=== PATIENT | female | born 1980 | race Caucasian/White ===

== ENCOUNTER 2019-10-08 05:09 | Emergency (ER) | payer OTHER ==
--- NOTE | 2019-10-08 05:30 | EDM.PDOC ---
<Heladio Jackman - Last Filed: 10/08/19 07:10> ED HPI GENERAL MEDICAL PROBLEM - General Chief Complaint: General Stated Complaint: SWOLLEN THROAT, DIFFICULTY BREATHING Time Seen by Provider: 10/08/19 05:20 - History of Present Illness INITIAL COMMENTS - FREE TEXT/NARRATIVE: 39-year-old female presents the emergency room with shortness of breath breathing difficulty sore throat. This started a couple days ago mostly with a sore throat and she has some swelling in her neck. She has been chilled at times unsure if she is had any fevers she has a mild dry nonproductive cough she denies any chest pain. She has no nausea but did early on in the illness. Patient denies any other complaints at this time patient is pretty sure she is not as she has had a tubal ligation. Throat Pain Score (Numeric/FACES): 7 - Related Data Allergies Allergy/AdvReac Type Severity Reaction Status Date / Time No Known Allergies Allergy Verified 10/08/19 05:28 Home Meds: Home Meds Amoxicillin 500 mg PO TID #30 tab 10/08/19 [Rx] ED ROS GENERAL - Review of Systems Review Of Systems: See Below Constitutional: Reports: Chills, Malaise, Weakness. Denies: No Symptoms HEENT: Reports: Throat Pain (She has noticed some swelling here also) Respiratory: Reports: Cough. Denies: No Symptoms, Shortness of Breath Cardiovascular: Reports: No Symptoms Endocrine: Reports: No Symptoms GI/Abdominal: Reports: No Symptoms : Reports: No Symptoms Musculoskeletal: Reports: No Symptoms ( ) ED EXAM, GENERAL - Physical Exam Exam: See Below Exam Limited By: No Limitations General Appearance: Alert, No Apparent Distress Eye Exam: Bilateral Eye: Normal Inspection Ears: Normal External Exam, Normal Canal, Hearing Grossly Normal, Normal TMs Nose: Normal Inspection, Normal Mucosa, No Blood Throat/Mouth: Normal Lips, Normal Teeth, Normal Voice, No Airway Compromise, Other (Tonsils are massively enlarged with a large amount of exudate noted on them posterior pharynx is minimally erythematous) Head: Atraumatic, Normocephalic Neck: Normal Inspection, Supple, Non-Tender, Full Range of Motion, Lymphadenopathy (L), Lymphadenopathy (R), Other (Palpation of the adenopathy is quite tender) Respiratory/Chest: No Respiratory Distress, Lungs Clear, Normal Breath Sounds Cardiovascular: Regular Rate, Rhythm, No Edema, No Murmur GI/Abdominal: Normal Bowel Sounds, Soft, No Organomegaly, No Distention, No Abnormal Bruit, No Mass, Other (She has a minimal amount of epigastric discomfort) Back Exam: Normal Inspection. No: CVA Tenderness (L), CVA Tenderness (R) Course - Vital Signs Last Recorded V/S: Last Vital Signs Temp 36.6 C 10/08/19 05:23 Pulse 98 10/08/19 05:23 Resp 20 10/08/19 05:23 BP 129/84 10/08/19 05:23 Pulse Ox 96 10/08/19 05:23 - Orders/Labs/Meds Labs: Laboratory Tests 10/08/19 10/08/19 10/08/19 Range/Units 05:55 05:55 05:55 WBC 14.73 H (3.98-10.04) K/mm3 RBC 4.51 (3.98-5.22) M/mm3 Hgb 13.0 (11.2-15.7) gm/dl Hct 39.8 (34.1-44.9) % MCV 88.2 (79.4-94.8) fl MCH 28.8 (25.6-32.2) pg MCHC 32.7 (32.2-35.5) g/dl RDW Std Deviation 47.5 H (36.4-46.3) fL Plt Count 279 (182-369) K/mm3 MPV 9.8 (9.4-12.3) fl Neutrophils % (Manual) 75 H (40-60) % Band Neutrophils % 0 (0-10) % Lymphocytes % (Manual) 17 L (20-40) % Atypical Lymphs % 0 % Monocytes % (Manual) 8 (2-10) % Eosinophils % (Manual) 0 L (0.7-5.8) % Basophils % (Manual) 0 L (0.1-1.2) Platelet Estimate Adequate RBC Morph Comment Normal Sodium 140 (136-145) mEq/L Potassium 3.4 L (3.5-5.1) mEq/L Chloride 103 (98-107) mEq/L Carbon Dioxide 23 (21-32) mEq/L Anion Gap 17.4 H (5-15) BUN 10 (7-18) mg/dL Creatinine 0.9 (0.55-1.02) mg/dL Est Cr Clr Drug Dosing 95.66 mL/min Estimated GFR (MDRD) > 60 (>60) mL/min BUN/Creatinine Ratio 11.1 L (14-18) Glucose 124 H (74-106) mg/dL Calcium 8.4 L (8.5-10.1) mg/dL Ferritin 116 (8-252) ng/ml Total Bilirubin 0.7 (0.2-1.0) mg/dL AST 38 H (15-37) U/L ALT 48 (14-59) U/L Alkaline Phosphatase 65 (46-116) U/L C-Reactive Protein 25.6 H* (<1.0) mg/dL Total Protein 7.7 (6.4-8.2) g/dl Albumin 3.5 (3.4-5.0) g/dl Globulin 4.2 gm/dL Albumin/Globulin Ratio 0.8 L (1-2) Monoscreen (NEGATIVE) 10/08/19 Range/Units 05:55 WBC (3.98-10.04) K/mm3 RBC (3.98-5.22) M/mm3 Hgb (11.2-15.7) gm/dl Hct (34.1-44.9) % MCV (79.4-94.8) fl MCH (25.6-32.2) pg MCHC (32.2-35.5) g/dl RDW Std Deviation (36.4-46.3) fL Plt Count (182-369) K/mm3 MPV (9.4-12.3) fl Neutrophils % (Manual) (40-60) % Band Neutrophils % (0-10) % Lymphocytes % (Manual) (20-40) % Atypical Lymphs % % Monocytes % (Manual) (2-10) % Eosinophils % (Manual) (0.7-5.8) % Basophils % (Manual) (0.1-1.2) Platelet Estimate RBC Morph Comment Sodium (136-145) mEq/L Potassium (3.5-5.1) mEq/L Chloride (98-107) mEq/L Carbon Dioxide (21-32) mEq/L Anion Gap (5-15) BUN (7-18) mg/dL Creatinine (0.55-1.02) mg/dL Est Cr Clr Drug Dosing mL/min Estimated GFR (MDRD) (>60) mL/min BUN/Creatinine Ratio (14-18) Glucose (74-106) mg/dL Calcium (8.5-10.1) mg/dL Ferritin (8-252) ng/ml Total Bilirubin (0.2-1.0) mg/dL AST (15-37) U/L ALT (14-59) U/L Alkaline Phosphatase (46-116) U/L C-Reactive Protein (<1.0) mg/dL Total Protein (6.4-8.2) g/dl Albumin (3.4-5.0) g/dl Globulin gm/dL Albumin/Globulin Ratio (1-2) Monoscreen Negative (NEGATIVE) Meds: Medications Discontinued Medications Generic Name Dose Route Start Last Admin Trade Name Freq PRN Reason Stop Dose Admin Amoxicillin 500 mg 10/08/19 07:09 10/08/19 07:47 Amoxil PO 10/08/19 07:10 500 mg ONETIME ONE Administration - Re-Assessments/Exams Free Text/Narrative Re-Assessment/Exam: 10/08/19 07:10 Rapid strep positive patient will be started on amoxicillin. Chest x-ray is unrevealing C-reactive protein is elevated ferritin is normal Departure - Departure Time of Disposition: 07:12 Disposition: Home, Self-Care 01 Clinical Impression: Strep pharyngitis - Discharge Information Prescriptions: Amoxicillin 500 mg PO TID #30 tab Referrals: PCP,None [Primary Care Provider] - Forms: ED Department Discharge Additional Instructions: Return to the emergency room with any questions problems or worsening symptoms. Take the amoxicillin as directed and take until all gone. Follow-up in the clinic if needed [phone] Sepsis Event Note - Focused Exam Vital Signs: Vital Signs Temp Pulse Resp BP Pulse Ox 10/08/19 05:23 36.6 C 98 20 129/84 96 Date Exam was Performed: 10/08/19 Time Exam was Performed: 07:10 <Romeo Muhammad - Last Filed: 10/08/19 11:28> Sepsis Event Note - Focused Exam Date Exam was Performed: 10/08/19 Time Exam was Performed: 08:58
[2019-10-08] MEDS ORDERED: Amoxicillin 500 MG Cap PO ONE (07:09)
--- NOTE | 2019-10-08 08:03 | CR ---
Chest: Frontal view of the chest was obtained. Comparison: No prior chest imaging is available. Heart size and mediastinum are normal. Azygos lobe is noted within the right upper chest. Lungs are clear with no acute parenchymal change. Bony structures are grossly intact. Impression: 1. Nothing acute is seen on frontal chest x-ray. Diagnostic code #1 This report was dictated in MDT
== END 2019-10-08 09:23 | disposition home or self-care (01) ==
LOC: JD.ED 05:09
DX: J02.0 Streptococcal pharyngitis (principal)
CPT/HCPCS: 36415; 71045; 80053; 82728; 85007; 85027; 86140; 86308; 87430; 99283; A9270

== ENCOUNTER 2020-04-16 02:33 | Emergency (ER) | payer BC, OTHER ==
[2020-04-16] MEDS ORDERED: FLU VACC QS2020-21(6MOS UP)/PF 60 MCG/0.5 ML SYRINGE IM ONE (03:15)
--- NOTE | 2020-04-16 03:28 | EDM.PDOC ---
ED HPI GENERAL MEDICAL PROBLEM - General Chief Complaint: Respiratory Problem Stated Complaint: SOB/NAUSEATED Time Seen by Provider: 04/16/20 03:00 Source of Information: Reports: Patient History Limitations: Reports: No Limitations - History of Present Illness INITIAL COMMENTS - FREE TEXT/NARRATIVE: Mrs. Ontiveros is a very pleasant 40-year-old woman who now presents to the ED a fter she developed dyspnea on exertion and even some dyspnea at rest, along with a fever and chills yesterday morning, 04/15/2020. She was nervous about her breathing, therefore acquired a finger pulse oximeter. She states that her oxygen saturation was 91% if upright, but down to 84% if she was supine. She then developed a dull discomfort felt under her left breast around noon yesterday. She then developed nausea with a single episode of emesis around midnight tonight. No recent cough or wheezing. No palpitations. No recent lower extremity edema or swelling. No prior similar symptoms. The patient states that she took 1000 g of acetaminophen around 11:00 yesterday morning, but no medications since. Here in the ED, the patient is found to be tachycardic at 135 bpm with mild tachypnea of 22 rpm. She is afebrile, saturating 93% on room air. Prior to yesterday morning, the patient denies having a recent fever, chills, sore throat, ear pain, nasal or sinus congestion, cough, dyspnea, chest pain, palpitations, nausea, vomiting, constipation, diarrhea, abdominal pain, urinary symptoms, recent weight gain or weight loss, recent bloody bowel movements or black bowel movements, recent joint aches, headaches, or rashes. The patient does not have a PCP. She did not receive an influenza vaccine this season, but agreed to receive one here today. Chest Pain Score (Numeric/FACES): 3 - Related Data Allergies Allergy/AdvReac Type Severity Reaction Status Date / Time No Known Allergies Allergy Verified 04/16/20 02:46 Past Medical History Neurological History: Reports: Other (See Below) (Shingles neuropathy right abdomen) - Infectious Disease History Infectious Disease History: Reports: Mononucleosis - Past Surgical History HEENT Surgical History: Reports: Oral Surgery (dental extractions) GI Surgical History: Reports: Cholecystectomy (2002) Female Surgical History: Reports: Tubal Ligation (2018) Social & Family History - Tobacco Use Tobacco Use Status *Q: Never Tobacco User Second Hand Smoke Exposure: No - Caffeine Use Caffeine Use: Reports: None - Alcohol Use Alcohol Use History: Yes Alcohol Use Frequency: Socially - Recreational Drug Use Recreational Drug Use: Yes Drug Use in Last 12 Months: No Recreational Drug Type: Reports: 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 ED EXAM, GENERAL - Physical Exam Exam: See Below Exam Limited By: No Limitations General Appearance: Alert, WD/WN, No Apparent Distress Eye Exam: Bilateral Eye: EOMI, Normal Inspection Ears: Normal External Exam, Hearing Grossly Normal Nose: Normal Inspection Throat/Mouth: Normal Inspection, Normal Lips, Normal Voice, No Airway Compromise Head: Atraumatic, Normocephalic Neck: Normal Inspection, Full Range of Motion Respiratory/Chest: No Respiratory Distress, Lungs Clear, Normal Breath Sounds, No Accessory Muscle Use. No: Decreased Breath Sounds, Crackles, Rhonchi, Wheezing, Stridor, Prolonged Expiration Cardiovascular: Normal Peripheral Pulses, No Edema, No Gallop, No JVD, No Murmur, No Rub, Tachycardia (regular) Peripheral Pulses: 3+: Radial (L), Radial (R) GI/Abdominal: Normal Bowel Sounds, Soft, Non-Tender, No Organomegaly, No Distention, No Abnormal Bruit, No Mass Back Exam: Normal Inspection, Full Range of Motion, NT Extremities: Normal Inspection, Normal Range of Motion, No Pedal Edema, Normal Capillary Refill Neurological: Alert, Oriented, Normal Cognition, No Motor/Sensory Deficits Psychiatric: Anxious Skin Exam: Warm, Dry, Intact, Normal Color, No Rash #1 Interpretation EKG Date: 04/16/20 Time: 02:54 Rhythm: Other (Sinus tachycardia) Rate (Beats/Min): 126 [place]: Other (Extreme axis) P-Wave: Enlarged (PAT) QRS: Normal ST-T: Normal QT: Normal Comparison: NA - No Prior EKG Course - Vital Signs Last Recorded V/S: Last Vital Signs Temp 37.6 C 04/16/20 02:43 Pulse 135 H 04/16/20 02:43 Resp 22 H 04/16/20 02:43 BP 121/75 04/16/20 02:43 Pulse Ox 93 L 04/16/20 02:43 - Orders/Labs/Meds Orders: Active Orders 24 hr Category Date Time Status EKG Documentation Completion [RC] STAT Care 04/16/20 03:14 Active Influenza Vaccine Charge [RC] .DISCHARGE Care 04/16/20 02:49 Active Ang Chest [CT] Stat Exams 04/16/20 03:34 Taken Chest 2V [CR] Stat Exams 04/16/20 03:14 Taken CULTURE BLOOD [BC] Stat Lab 04/16/20 03:30 Received CULTURE BLOOD [BC] Stat Lab 04/16/20 03:40 Received Sodium Chloride 0.9% [Normal Saline] 1,000 ml Med 04/16/20 03:45 Active IV ASDIRECTED Sodium Chloride 0.9% [Normal Saline] 100 ml Med 04/16/20 05:00 Active IV ASDIRECTED Sodium Chloride 0.9% [Saline Flush] Med 04/16/20 05:00 Active 10 ml FLUSH BOLUS Blood Culture x2 Reflex Set [OM.PC] Stat Oth 04/16/20 03:14 Ordered Isolation [COMM] Routine Oth 04/16/20 03:20 Ordered Medication Orders Sodium Chloride (Normal Saline) 1,000 mls @ 75 mls/hr IV ASDIRECTED SARA Last Admin: 04/16/20 04:40 Dose: 75 mls/hr Documented by: BARBIE Sodium Chloride (Normal Saline) 100 mls @ 60 mls/hr IV ASDIRECTED SARA Last Admin: 04/16/20 04:50 Dose: 60 mls/hr Documented by: [email or web address] Sodium Chloride (Saline Flush) 10 ml FLUSH BOLUS SARA Last Admin: 04/16/20 04:50 Dose: 10 ml Documented by: [email or web address] Labs: Laboratory Tests 04/16/20 04/16/20 04/16/20 Range/Units 03:05 03:05 03:05 WBC 5.21 (3.98-10.04) K/mm3 RBC 4.95 (3.98-5.22) M/mm3 Hgb 13.8 (11.2-15.7) gm/dl Hct 42.1 (34.1-44.9) % MCV 85.1 D (79.4-94.8) fl MCH 27.9 (25.6-32.2) pg MCHC 32.8 (32.2-35.5) g/dl RDW Std Deviation 44.0 (36.4-46.3) fL Plt Count 216 (182-369) K/mm3 MPV 9.7 (9.4-12.3) fl Neutrophils % (Manual) 61 H (40-60) % Band Neutrophils % 24 H (0-10) % Lymphocytes % (Manual) 12 L (20-40) % Atypical Lymphs % 0 % Monocytes % (Manual) 3 (2-10) % Eosinophils % (Manual) 0 L (0.7-5.8) % Basophils % (Manual) 0 L (0.1-1.2) Platelet Estimate Adequate Plt Morphology Comment Normal RBC Morph Comment Normal D-Dimer, Quantitative 2.18 H (0.19-0.50) mg/L Sodium 137 (136-145) mEq/L Potassium 3.4 L (3.5-5.1) mEq/L Chloride 102 (98-107) mEq/L Carbon Dioxide 23 (21-32) mEq/L Anion Gap 15.4 H (5-15) BUN 9 (7-18) mg/dL Creatinine 0.9 (0.55-1.02) mg/dL Est Cr Clr Drug Dosing 94.73 mL/min Estimated GFR (MDRD) > 60 (>60) mL/min BUN/Creatinine Ratio 10.0 L (14-18) Glucose 131 H (74-106) mg/dL Lactic Acid (0.4-2.0) mmol/L Calcium 8.5 (8.5-10.1) mg/dL Magnesium 1.8 (1.8-2.4) mg/dl Total Bilirubin 0.7 (0.2-1.0) mg/dL AST 42 H (15-37) U/L ALT 54 (14-59) U/L Alkaline Phosphatase 65 (46-116) U/L Troponin I < 0.017 (0.00-0.056) ng/mL NT-Pro-B Natriuret Pep (0-125) pg/mL Total Protein 7.5 (6.4-8.2) g/dl Albumin 3.5 (3.4-5.0) g/dl Globulin 4.0 gm/dL Albumin/Globulin Ratio 0.9 L (1-2) SARS-CoV-2 RNA (RIANNA) (NEGATIVE) 04/16/20 04/16/20 04/16/20 Range/Units 03:05 03:05 03:25 WBC (3.98-10.04) K/mm3 RBC (3.98-5.22) M/mm3 Hgb (11.2-15.7) gm/dl Hct (34.1-44.9) % MCV (79.4-94.8) fl MCH (25.6-32.2) pg MCHC (32.2-35.5) g/dl RDW Std Deviation (36.4-46.3) fL Plt Count (182-369) K/mm3 MPV (9.4-12.3) fl Neutrophils % (Manual) (40-60) % Band Neutrophils % (0-10) % Lymphocytes % (Manual) (20-40) % Atypical Lymphs % % Monocytes % (Manual) (2-10) % Eosinophils % (Manual) (0.7-5.8) % Basophils % (Manual) (0.1-1.2) Platelet Estimate Plt Morphology Comment RBC Morph Comment D-Dimer, Quantitative (0.19-0.50) mg/L Sodium (136-145) mEq/L Potassium (3.5-5.1) mEq/L Chloride (98-107) mEq/L Carbon Dioxide (21-32) mEq/L Anion Gap (5-15) BUN (7-18) mg/dL Creatinine (0.55-1.02) mg/dL Est Cr Clr Drug Dosing mL/min Estimated GFR (MDRD) (>60) mL/min BUN/Creatinine Ratio (14-18) Glucose (74-106) mg/dL Lactic Acid 0.9 (0.4-2.0) mmol/L Calcium (8.5-10.1) mg/dL Magnesium (1.8-2.4) mg/dl Total Bilirubin (0.2-1.0) mg/dL AST (15-37) U/L ALT (14-59) U/L Alkaline Phosphatase (46-116) U/L Troponin I (0.00-0.056) ng/mL NT-Pro-B Natriuret Pep 15 (0-125) pg/mL Total Protein (6.4-8.2) g/dl Albumin (3.4-5.0) g/dl Globulin gm/dL Albumin/Globulin Ratio (1-2) SARS-CoV-2 RNA (RIANNA) Positive H (NEGATIVE) Meds: Medications Generic Name Dose Route Start Last Admin Trade Name Freq PRN Reason Stop Dose Admin Sodium Chloride 1,000 mls @ 75 mls/hr 04/16/20 03:45 04/16/20 04:40 Normal Saline IV 75 mls/hr ASDIRECTED SARA Administration Sodium Chloride 100 mls @ 60 mls/hr 04/16/20 05:00 04/16/20 04:50 Normal Saline IV 60 mls/hr ASDIRECTED SARA Administration Sodium Chloride 10 ml 04/16/20 05:00 04/16/20 04:50 Saline Flush FLUSH 10 ml BOLUS SARA Administration Discontinued Medications Generic Name Dose Route Start Last Admin Trade Name Freq PRN Reason Stop Dose Admin Influenza Virus Vaccine 1 each 04/16/20 02:49 Pharmacy To Dose - Influenza Vaccine IM 04/16/20 02:50 ONETIME ONE Influenza Virus Vaccine 60 mcg 04/16/20 03:15 Fluzone Quad [id number] Syringe IM 04/16/20 03:16 .ONCE ONE Iopamidol 100 ml 04/16/20 04:48 04/16/20 04:50 [id number]-370 (76%) IVPUSH 04/16/20 04:49 100 ml ONETIME ONE Administration - Re-Assessments/Exams Free Text/Narrative Re-Assessment/Exam: 04/16/20 03:17 As above, the patient developed dyspnea on exertion and even dyspnea at rest, along with a fever, chills, and decreased oxygen saturation yesterday morning, discomfort under her left breast around noon yesterday, then nausea with a single episode of emesis around midnight tonight. She denies having a cough, however, she did cough when I asked her to take deep breaths in order to auscultate her lungs. She is tachycardic, and an ECG obtained at triage demonstrates sinus tachycardia with an extreme axis. While no fever was recorded here in the ED, she feels somewhat febrile to the touch. Her lungs are entirely clear to auscultation bilaterally, which is concerning for COVID-19, although a pulmonary embolus could also explain all of her symptoms. I have ordered a work-up that includes blood work, 2 sets of blood cultures, a chest x- ray, and swabs for both influenza and the SARS-CoV-2 virus. 04/16/20 03:35 The patient's D-dimer has returned elevated at 2.18, therefore I have ordered a CT angiogram of the chest to evaluate for a PE, along with judicious IV fluid. 04/16/20 03:44 The patient's CBC is unremarkable. Her CMP is remarkable for a potassium slightly depressed at 3.4, and anion gap slightly elevated at 15.4, but with a bicarbonate normal at 23, blood glucose slightly elevated at 131, and an AST slightly elevated at 42 with an ALT normal at 54, and the remainder of her CMP being unremarkable. Her magnesium level is within normal limits at 1.8. Her lactic acid level is within normal limits at 0.9. Her troponin is undetectably low. Her BNP is within normal limits at 15. 04/16/20 04:15 The patient's swab for the SARS-CoV-2 virus has returned positive. 04/16/20 04:20 The patient's swab for influenza has returned negative. 04/16/20 05:21 2-view chest radiograph is read by [facility] as "Subtle bilateral lower lobe parenchymal opacities consistent with pneumonia. See concurrent CT chest report ." 04/16/20 05:25 CT angiogram of the chest is read by [facility] as: No CT findings to suggest pulmonary emboli, thoracic aortic dissection or aneurysm. Extensive bilateral lung ground-glass opacities. Commonly reported imaging features of COVID-19 pneumonia are present. Other processes such as influenza pneumonia and organizing pneumonia, as can be seen with drug toxicity and connective tissue disease, can cause a similar imaging pattern. (Reference: Bon) 04/16/20 05:38 Test results discussed with the patient. As above, the patient has COVID-19, which explains her symptoms. She also has mild hyperglycemia due to either prediabetes or actual diabetes. I recommended that the patient purchase a finger pulse oximeter, and that she return to the ED if her oxygen saturation gets down to 90% or below. I explained that medical treatment does not kick in unless her oxygen saturation is low enough to require supplemental oxygen. I advised that she try to avoid antipyretics, but that if she really felt she needed one, to take Tylenol as opposed to ibuprofen. I advised her to strictly quarantine until she tests negative for the virus twice. Once she is feeling better, I would like her to follow-up with a PCP to be checked for prediabetes versus diabetes. The patient will be given an influenza vaccine prior to discharge. Departure - Departure Time of Disposition: 05:40 Disposition: Home, Self-Care 01 Condition: Good Clinical Impression: COVID-19, Hyperglycemia - Discharge Information *PRESCRIPTION DRUG MONITORING PROGRAM REVIEWED*: Not Applicable *COPY OF PRESCRIPTION DRUG MONITORING REPORT IN PATIENT AMAURY: Not Applicable Referrals: PCP,None [Primary Care Provider] - Forms: ED Department Discharge Additional Instructions: You were seen in the emergency room after developing shortness of breath, even at rest, along with a fever, chills, a decreased oxygen saturation, and discomfort under your left breast, along with nausea and one episode of vomiting. Work-up in the ER included blood work, 2 sets of blood cultures, a chest x-ray, a CT angiogram of your chest, and swabs for both influenza and the SARS-CoV-2 virus. Your blood work found your blood sugar to be mildly elevated at 131. This indicates that you either have a condition known as prediabetes, or actual diabetes. Once you are feeling better, we would like you to follow-up with a primary care for further evaluation. Your swab to test for the SARS-CoV-2 virus returned positive, and both your chest x-ray and CT scan demonstrated that you have infiltrates in both of your lungs consistent with COVID-19 pneumonia. The remainder of your work-up was unremarkable. It is imperative that you strictly quarantine until you tested negative for the virus twice. We recommend that you continue to monitor your oxygen saturation. If it drops down to 90% or below, you need to return to the ER for reevaluation. In general, we recommend that you not take any [id number] Tylenol or ibuprofen for a fever, because fever is an important part of your immune system trying to fight the virus, however, if you are particularly uncomfortable and need to take something, we recommend that you take Tylenol as opposed to ibuprofen. You were given an influenza vaccine during your ER visit. Sepsis Event Note (ED) - Evaluation Sepsis Screening Result: No Definite Risk - Focused Exam Vital Signs: Vital Signs Temp Pulse Resp BP Pulse Ox 04/16/20 02:43 37.6 C 135 H 22 H 121/75 93 L - My Orders Last 24 Hours: My Active Orders 04/16/20 02:49 Influenza Vaccine Charge [RC] .DISCHARGE 04/16/20 03:14 EKG Documentation Completion [RC] STAT Chest 2V [CR] Stat Blood Culture x2 Reflex Set [OM.PC] Stat 04/16/20 03:20 Isolation [COMM] Routine 04/16/20 03:30 CULTURE BLOOD [BC] Stat 04/16/20 03:34 Ang Chest [CT] Stat 04/16/20 03:40 CULTURE BLOOD [BC] Stat 04/16/20 03:45 Sodium Chloride 0.9% [Normal Saline] 1,000 ml IV ASDIRECTED 04/16/20 05:00 Sodium Chloride 0.9% [Normal Saline] 100 ml IV ASDIRECTED Sodium Chloride 0.9% [Saline Flush] 10 ml FLUSH BOLUS - Assessment/Plan Last 24 Hours: My Active Orders 04/16/20 02:49 Influenza Vaccine Charge [RC] .DISCHARGE 04/16/20 03:14 EKG Documentation Completion [RC] STAT Chest 2V [CR] Stat Blood Culture x2 Reflex Set [OM.PC] Stat 04/16/20 03:20 Isolation [COMM] Routine 04/16/20 03:30 CULTURE BLOOD [BC] Stat 04/16/20 03:34 Ang Chest [CT] Stat 04/16/20 03:40 CULTURE BLOOD [BC] Stat 04/16/20 03:45 Sodium Chloride 0.9% [Normal Saline] 1,000 ml IV ASDIRECTED 04/16/20 05:00 Sodium Chloride 0.9% [Normal Saline] 100 ml IV ASDIRECTED Sodium Chloride 0.9% [Saline Flush] 10 ml FLUSH BOLUS
[2020-04-16] MEDS ORDERED: Sodium Chloride 0.9% 1,000 ML IV SCH (03:45)
[2020-04-16] MEDS ORDERED: Iopamidol 755 Mg/ML 100 ML Bottle IVPUSH ONE (04:48)
[2020-04-16] MEDS ORDERED: Sodium Chloride 0.9% 10 ML Syringe FLUSH SCH (05:00)
[2020-04-16] MEDS ORDERED: Sodium Chloride 0.9% 100 ML IV SCH (05:00)
--- NOTE | 2020-04-18 10:31 | CR ---
PROCEDURE INFORMATION: Exam: XR Chest, 2 Views Exam date and time: 04/16/2020 4:28 AM Age: 40 years old Clinical indication: Pain; Patient HX: SOB, central chest pressure/tightness, syncope onset 24 hours ago TECHNIQUE: Imaging protocol: XR of the chest Views: 2 views. COMPARISON: CT Ang Chest 04/16/2020 3:58 AM FINDINGS: Lungs: Azygos fissure is noted, developmental variant. There are subtle patchy airspace opacities within the bilateral lower lobes. The upper lungs appear clear. Pleural space: . No pleural effusion. No pneumothorax. Heart/Mediastinum: Unremarkable. No cardiomegaly. Bones/joints: Unremarkable. IMPRESSION: Subtle bilateral lower lobe parenchymal opacities consistent with pneumonia. See concurrent CT chest report. Thank you for allowing us to participate in the care of your patient. Dictated and Authenticated by: Skylar Lyles MD 04/16/2020 6:15 AM Central Time ([place] & [place]) [email or web address]
--- NOTE | 2020-04-18 10:32 | CT ---
"PROCEDURE INFORMATION: Exam: CT Angiography Chest With Contrast Exam date and time: 04/16/2020 3:58 AM Age: 40 years old Clinical indication: Pain; Patient HX: SOB, tingling, syncope, chest pressure/tightness onset 24 hrs ago; Additional info: Previous 1 view cxr report scanned into cxr exam today TECHNIQUE: Imaging protocol: Computed tomographic angiography of the chest with intravenous contrast. 3D rendering (Not supervised by radiologist): MIP and/or 3D reconstructed images were created by the technologist. Radiation optimization: All CT scans at this facility use at least one of these dose optimization techniques: automated exposure control; mA and/or kV adjustment per patient size (includes targeted exams where dose is matched to clinical indication); or iterative reconstruction. Contrast material: ISOVUE 370; Contrast volume: 98 ml; Contrast route: INTRAVENOUS (IV); COMPARISON: CR Chest 1V Frontal 10/08/2019 5:36 AM FINDINGS: Limitations: Motion related artifacts limit exam sensitivity. Pulmonary arteries: The visualized pulmonary arteries appear clear without thrombus evident. Aorta: No aortic dilation. No visualized aortic dissection flap. Lungs: Azygos fissure is noted, developmental variant. There numerous bilateral patchy regions of ground-glass opacification predominant to the mid to lower lungs. Mild confluent opacification of the lower lingula. Pleural space: No pneumothorax. No significant pleural effusion. Heart: No cardiomegaly or pericardial fluid. Mediastinal space: Small hiatal hernia. Lymph nodes: The mediastinum is normal without mass, fluid or adenopathy. JANUSZ BELLAMY | Final Radiology Report CONFIDENTIALITY STATEMENT This report is intended only for use by the referring physician, and only in accordance with law. If you received this in error, call [phone]. Page 2 of 2 Bones/joints: The vertebral bodies are normal in height and alignment without focal lesion. Disc spaces are maintained. Soft tissues: The visualized soft tissues appear unremarkable. Other findings: The upper abdominal contents are otherwise unremarkable. IMPRESSION: No CT findings to suggest pulmonary emboli, thoracic aortic dissection or aneurysm. Extensive bilateral lung ground-glass opacities.Commonly reported imaging features of COVID-19 pneumonia are present. Other processes such as influenza pneumonia and organizing pneumonia, as can be seen with drug toxicity and connective tissue disease, can cause a similar imaging pattern. (Reference: Bon) References: Bon Cunningham et al., [employer] Society of [place] Expert Consensus Statement on Reporting Chest CT Findings Related to COVID-19. Endorsed by the Society of [employer] Radiology, the [place] [employer], and [employer]NA. Published September 02, 2019. THIS REPORT CONTAINS FINDINGS THAT MAY BE CRITICAL TO PATIENT CARE. The findings were verbally communicated via telephone conference with SHANTHI MANCERA at 6:23 AM INSEMINATOR on 04/16/2020. The findings were acknowledged and understood. Thank you for allowing us to participate in the care of your patient. Dictated and Authenticated by: Skylar Lyles MD 04/16/2020 6:23 AM Central Time ([place] & [place]) [id number]"
== END 2020-04-16 06:13 | disposition home or self-care (01) ==
LOC: JD.ED 02:33
DX: U07.1 COVID-19 (principal); R73.9 Hyperglycemia, unspecified; Z98.51 Tubal ligation status; Z90.49 Acquired absence of other specified parts of digestive tract
CPT/HCPCS: 36415; 71046; 71275; 80053; 83605; 83735; 83880; 84484; 85007; 85027; 85379; 87040; 87635; 87804; 90471; 90686; 93005; 99285; J7030; Q9967; 93010; 99284; G0008; U0002